=== PATIENT | male | born 1990 | race Caucasian/White ===

== ENCOUNTER 2019-08-04 08:12 | Emergency (ER) | payer SELFPAY ==
[2019-08-04] MEDS ORDERED: IBUPROFEN 600 MG TABLET ONE (08:36)
[2019-08-04 09:25] LABS: APPEARANCE,URINE Clear (CLEAR); BILIRUBIN,URINE Negative (NEGATIVE); COLOR,URINE Yellow (YELLOW); GLUCOSE, URINE (UA) Negative (NEGATIVE); KETONES,URINE Negative (NEGATIVE); LEUKOCYTE ESTERASE ,URINE Negative (NEGATIVE); NITRATE,URINE Negative (NEGATIVE); OCCULT BLOOD,URINE Negative (NEGATIVE); PROTEIN,URINE Negative (NEGATIVE); UROBILINOGEN,URINE 0.2 mg/dL (0.2-1.0)
== END 2019-08-04 10:22 | disposition home or self-care (01) ==
LOC: EDH 08:12
DX: N44.03 Torsion of appendix testis (principal); Z90.49 Acquired absence of other specified parts of digestive tract
CPT/HCPCS: 76870; 81003